=== PATIENT | male | born 1985 | race Caucasian/White ===

== ENCOUNTER 2017-09-19 18:07 | Emergency (ER) | payer MEDICAID, OTHER ==
[~2017-09-19] VITALS: Ht 182.9 cm; Wt 88.0 kg
--- NOTE | 2017-09-19 18:25 | PD ---
HPI Chief Complaint: Psychiatric Symptoms Time Seen by Provider: 18:22 Travel History International Travel<30 days: No Contact w/Intl Traveler<30days: No Traveled to known affect area: No History of Present Illness HPI Patient presents to the emergency department under Gallardo act. According to law enforcement report the patient stated "to his mother that his withdrawal from narcotics have made him make suicidal statements. He has stated that he was going to jump off a balcony to end his life. When the officer was speaking with the patient he was making a complete statements and not making sense. When the officer attempted to take the patient into protective custody he fought the officer and his lieutenant before being taken into custody." Patient denies making any statements of suicide. He said he just recently moved down here and he has been taking Suboxone and has not taken it for the last 6 days. He denies going through withdrawals. Denies homicidal ideations. Denies auditory or visual hallucinations. Reports doing cocaine and drinking alcohol to avoid going through withdrawals. Denies significant past medical history. Denies allergies. Denies current medical complaints to include chest pain, shortness breath, abdominal pain, vomiting, change in urine or stool. No known aggravating or relieving factors. No other modifying factors or associated signs and symptoms. [facility] Social History Alcohol Use: Yes Tobacco Use: No Substance Use: Yes (cocaine) Allergies-Medications (Allergen,Severity, Reaction): Coded Allergies: No Known Allergies (Unverified , 09/19/17) Review of Systems Except as stated in HPI: all other systems reviewed are Neg Physical Exam Narrative GENERAL: Well-nourished, well-developed male patient, in no acute distress; agitated SKIN: Warm and dry. HEAD: Atraumatic. Normocephalic. EYES: Pupils equal and round. ENT: Mucosa pink and moist. NECK: Supple. Trachea midline. CARDIOVASCULAR: Regular rate and rhythm. No murmur appreciated. RESPIRATORY: No accessory muscle use. Clear to auscultation. Breath sounds equal bilaterally. GASTROINTESTINAL: Abdomen soft, non-tender, nondistended. Hepatic and splenic margins not palpable. Bowel sounds are active 4 quadrants. MUSCULOSKELETAL: No obvious deformities. No clubbing. No cyanosis. No edema. NEUROLOGICAL: Awake and alert. No obvious cranial nerve deficits. Motor grossly within normal limits. Normal speech. Moves all extremities. 5/5 strength to all extremities. PSYCHIATRIC: No delusional thought processes. Patient is talking out loud in the room and does not appear to be having conversation with anyone in the room. Data Data Orders Orders Complete Blood Count With Diff (09/19/17 18:22) Comprehensive Metabolic Panel (09/19/17 18:22) Psych Screen (09/19/17 18:22) Drug Screen, Random Urine (09/19/17 18:22) Alcohol (Ethanol) (09/19/17 18:22) Salicylates (Aspirin) (09/19/17 18:22) Tylenol (Acetaminophen) (09/19/17 18:22) Haloperidol Inj (Haldol Inj) (09/19/17 18:45) Restraints Non-Violent WILMER.Q3H (09/19/17 18:36) MDM Medical Decision Making Medical Screen Exam Complete: Yes Emergency Medical Condition: Yes Medical Record Reviewed: Yes Differential Diagnosis Suicidal ideation, drug intoxication, medical clearance for psychiatric admission Narrative Course Patient presents under a Gallardo act. Physical examination and vital signs are essentially unremarkable. Patient has no medical complaints to report. Psych screen has been ordered. If the laboratory results are unremarkable, the patient will be medically cleared for psychiatric evaluation and disposition. 1835: Patient is not cooperating, he is agitated and acting aggressively. Dr. Oquendo evaluated the patient and recommended Haldol 5mg and the patient will be restrained for staff and patient safety. Orders entered. Diagnosis Primary Impression: Medical clearance for psychiatric admission Condition: Stable Cady Quiñonez [facility] Sep 19, 2017 18:25
[2017-09-19] MEDS ORDERED: HALOPERIDOL LACTATE 5 MG/ML AMP IM ONE (18:45)
[2017-09-19 19:01] VITALS: BP 108/61; PULSE 79; RESP 16; TEMP 98.2; O2SAT 98
[2017-09-19 19:07] LABS: AUTOMATED NEUTROPHIL # 9.2 TH/MM3 (1.8-7.7); BASOPHIL % 0.2 % (0.0-2.0); EOSINOPHIL % 0.2 % (0.0-4.0); HEMATOCRIT 47.7 % (39.0-51.0); HEMO FLAGS DIFF FINAL; LYMPH % 17.5 % (9.0-44.0); LYMPHOCYTE # 2.2 TH/MM3 (1.0-4.8); MEAN CELL VOLUME 105.3 FL (80.0-100.0); MEAN CORPUSCULAR HEMOGLOBIN 35.8 PG (27.0-34.0); MONO % 9.9 % (0.0-8.0); NEUT % 72.2 % (16.0-70.0); PLATELET COUNT 298 TH/MM3 (150-450); RED BLOOD COUNT 4.53 MIL/MM3 (4.50-5.90); RED CELL DISTRIBUTION WIDTH 14.6 % (11.6-17.2); WHITE BLOOD COUNT 12.7 TH/MM3 (4.0-11.0)
--- NOTE | 2017-09-19 19:17 | PD ---
Physical Exam Narrative I, Dr. Oquendo, have reviewed the advance practice practitioner's documentation and am in agreement, met with the patient face to face, made the diagnosis, and the medical decision making was done by me. *My assessment and Findings: Suicidal ideation vs. drug induced psychosis 32yo M was brought in as Gallardo Act for making suicidal statements. As per Gallardo Act, he stated withdrawal from narcotics has made him make suicidal statements. Pt is agitated and uncooperative here. Pt refused to answer my questions, refused to change to gown and was being a threat to others and himself. Pt given haldol IM and placed in restraints for safety. Labs reviewed , WBC 12.7. Mild hypokalemia at 3.1, replaced orally. AST elevated at 50 but has no abdominal pain. Alcohol 252. Utox positive for amphetamine, benzodiazepine and cocaine. Acetaminophen negative. Pt reevaluated at bedside after haldol and is more calm so restraints were removed. Said he is willing to wait for psych calmly and answers my questions. Denies any PMH or medical complaints. Admits to drug use. Pt is medically clear for psych evaluation. Will have a sitter to observe patient. Data Data Last Documented VS Vital Signs Date Time Temp Pulse Resp B/P (MAP) Pulse Ox O2 Delivery O2 Flow Rate FiO2 09/19/17 19:01 98.2 79 16 108/61 (77) 98 Orders Orders Complete Blood Count With Diff (09/19/17 18:22) Comprehensive Metabolic Panel (09/19/17 18:22) Psych Screen (09/19/17 18:22) Drug Screen, Random Urine (09/19/17 18:22) Alcohol (Ethanol) (09/19/17 18:22) Salicylates (Aspirin) (09/19/17 18:22) Tylenol (Acetaminophen) (09/19/17 18:22) Haloperidol Inj (Haldol Inj) (09/19/17 18:45) Restraints Non-Violent WILMER.Q3H (09/19/17 18:36) Labs Laboratory Tests Test 09/19/17 18:40 09/19/17 19:30 White Blood Count 12.7 TH/MM3 Red Blood Count 4.53 MIL/MM3 Hemoglobin 16.2 GM/DL Hematocrit 47.7 % Mean Corpuscular Volume 105.3 FL Mean Corpuscular Hemoglobin 35.8 PG Mean Corpuscular Hemoglobin Concent 34.0 % Red Cell Distribution Width 14.6 % Platelet Count 298 TH/MM3 Mean Platelet Volume 8.2 FL Neutrophils (%) (Auto) 72.2 % Lymphocytes (%) (Auto) 17.5 % Monocytes (%) (Auto) 9.9 % Eosinophils (%) (Auto) 0.2 % Basophils (%) (Auto) 0.2 % Neutrophils # (Auto) 9.2 TH/MM3 Lymphocytes # (Auto) 2.2 TH/MM3 Monocytes # (Auto) 1.3 TH/MM3 Eosinophils # (Auto) 0.0 TH/MM3 Basophils # (Auto) 0.0 TH/MM3 CBC Comment DIFF FINAL Differential Comment Blood Urea Nitrogen 13 MG/DL Creatinine 1.12 MG/DL Random Glucose 114 MG/DL Total Protein 8.5 GM/DL Albumin 3.8 GM/DL Calcium Level 8.4 MG/DL Alkaline Phosphatase 114 U/L Aspartate Amino Transf (AST/SGOT) 50 U/L Alanine Aminotransferase (ALT/SGPT) 58 U/L Total Bilirubin 0.2 MG/DL Sodium Level 141 MEQ/L Potassium Level 3.1 MEQ/L Chloride Level 107 MEQ/L Carbon Dioxide Level 21.0 MEQ/L Anion Gap 13 MEQ/L Estimat Glomerular Filtration Rate 75 ML/MIN Acetaminophen Level LESS THAN 2.0 MCG/ML Ethyl Alcohol Level 252 MG/DL Urine Opiates Screen NEG Urine Barbiturates Screen NEG Urine Amphetamines Screen POS Urine Benzodiazepines Screen POS Urine Cocaine Screen POS Urine Cannabinoids Screen NEG MDM Supervised Visit with RADHA: Yes Diagnosis Primary Impression: Medical clearance for psychiatric admission Scripts No Active Prescriptions or Reported Meds Condition: Stable Gloria Oquendo DO Sep 19, 2017 19:17
[2017-09-19 19:37] LABS: ANION GAP 13 MEQ/L (5-15); AST (GOT) 50 U/L (15-37); BLOOD UREA NITROGEN 13 MG/DL (7-18); CHLORIDE 107 MEQ/L (98-107); GLOMERULAR FILTRATION RATE 75 ML/MIN (>89); POTASSIUM 3.1 MEQ/L (3.5-5.1); SODIUM (NA) 141 MEQ/L (136-145)
[2017-09-19 19:40] LABS: ALKALINE PHOSPHATASE 114 U/L (45-117); ALT (GPT) 58 U/L (12-78); TOTAL BILIRUBIN ADULT 0.2 MG/DL (0.2-1.0)
[2017-09-19 19:42] LABS: ALCOHOL 252 MG/DL (0-5)
[2017-09-19 19:43] LABS: ACETAMINOPHEN LESS THAN 2.0 MCG/ML (10.0-30.0)
[2017-09-19] MEDS ORDERED: POTASSIUM CHLORIDE 20 MEQ CONTROLLED RELEASE TAB PO ONE (21:00)
[2017-09-19 21:45] VITALS: BP 126/68; PULSE 88; RESP 20; TEMP 98.2; O2SAT 96
[2017-09-20 00:03] VITALS: BP 134/83; PULSE 106; RESP 16; TEMP 98; O2SAT 97
[2017-09-20 02:00] VITALS: BP 120/73; PULSE 80; RESP 16; TEMP 99.1; O2SAT 98
== END 2017-09-20 03:51 ==
LOC: NEPD 18:07 → NEPJ 09-20 03:51
DX: Z02.89 Encounter for other administrative examinations (principal); R45.1 Restlessness and agitation; Z91.14 Patient's other noncompliance with medication regimen; Z72.89 Other problems related to lifestyle
CPT/HCPCS: 80053; 80307; 85025; 96372

== ENCOUNTER 2018-07-18 19:06 | Observation (INO) ==
[2018-07-18] MEDS ORDERED: Sod Chloride 0.9% Inj 1,000 ML IV.SIG ONE (19:33)
[2018-07-18] MEDS ORDERED: Famotidine PF Inj 20 MG/2 ML Vial IV.PUSH ONE (19:33)
--- NOTE | 2018-07-18 19:44 | ED ---
HPI General Chief complaint: Nausea/Vomiting/Diarrhea Stated complaint: seen earlier/fast HR and vomiting Time Seen by Provider: 07/18/18 19:14 Source: patient and family Mode of arrival: ambulatory Limitations: no limitations History of Present Illness HPI Narrative: The patient is a 33-year-old male who presents to the emergency department for nausea, vomiting, and esophageal discomfort after vomiting. The patient states he has a history of remote IV drug abuse and is currently on Suboxone, Valium, and medical marijuana. The patient has been cutting back the amount of Suboxone and Valium and increasing the amount of medical marijuana. The patient states he went on a 5-day fast 6 days ago, fasted for 5 days where he only drank water. The patient then tried to eat earlier today and developed subsequent nausea and vomiting. He also complains of mild epigastric pain secondary to the vomiting as well as a burning sensation in his throat after vomiting. The patient denies any illicit drug use or alcohol use. He denies any history of diabetes. The patient was seen in the emergency department earlier today, had an IV placed, however, tore his IV and went running out of the emergency department prior to completing treatment. The patient states he had to go home and get some Pepto-Bismol from his mother for his esophageal discomfort. MD complaint: Reports nausea and vomiting Onset (ago): hour(s) Description of Vomiting: watery Description of Diarrhea: none Associated Abdominal Pain: Yes Location of pain: Reports epigastric Radiation: does not radiate Severity: moderate Severity scale (1-10): 5 Quality: Reports sharp Pain Consistency: intermittent and now resolved Relieving factors: none Exacerbating factors: vomiting Context: Reports marijuana use Associated symptoms: Reports chest pain, nausea/vomiting, weakness and anxiety Related Data Home Medications Medication Instructions Recorded Confirmed buprenorphine-naloxone [Suboxone] film BUCCAL DAILY 07/18/18 diazepam [Valium] mg PO DAILY 07/18/18 Allergies Allergy/AdvReac Type Severity Reaction Status Date / Time No Known Allergies Allergy Verified 07/18/18 12:08 Review of Systems ROS: all other systems reviewed are negative [facility] Medical History Medical History Substance abuse (Acute) Surgical History Surgical History H/O splenectomy (Acute) Social History Social History Substance History: Past History Smoking Status: Current every day smoker Tobacco Type: Cigarettes How Often Do You Have a Drink Containing Alcohol: Never Recent Travel in [facility] within the Last 8 Weeks: No Recent Out of Country Travel within the Last 8 Weeks: No Substance Abuse Detail Heroin: 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 SKIN: Focused skin assessment warm/dry. HEAD: Atraumatic. Normocephalic. EYES: Pupils equal and round. No scleral icterus. No injection or drainage. ENT: No nasal bleeding or discharge. Mucous membranes pink and moist. NECK: Trachea midline. No JVD. CARDIOVASCULAR: Regular, tachycardic with a heart rate of 105. RESPIRATORY: No accessory muscle use. Clear to auscultation. Breath sounds equal bilaterally. GASTROINTESTINAL: Abdomen soft, non-tender, nondistended. No epigastric tenderness. No guarding rigidity. Well-healed midline scar. Large tattoo over the chest and abdomen noted. MUSCULOSKELETAL: No obvious deformities. No clubbing. No cyanosis. No edema. NEUROLOGICAL: Awake and alert. No obvious cranial nerve deficits. Motor grossly within normal limits. Normal speech. PSYCHIATRIC: Slightly anxious. Course Initial Documented Vital Signs Temperature 98.0 F 07/18/18 20:15 Pulse Rate 87 07/18/18 20:15 Respiratory Rate 18 07/18/18 20:15 Blood Pressure 127/71 07/18/18 20:15 Pulse Oximetry 100 07/18/18 20:15 Last Documented Vital Signs Temperature 98.0 F 07/18/18 20:15 Pulse Rate 87 07/18/18 20:15 Respiratory Rate 18 07/18/18 20:15 Blood Pressure 127/71 07/18/18 20:15 Pulse Oximetry 100 07/18/18 20:15 Medical Decision Making [facility] Narrative Medical decision making narrative: IV was established, labs are drawn and sent, and the patient was placed on cardiac telemetry monitoring and continuous pulse oximetry monitoring. The patient was administer 1 L of IV fluids. VBG, lactic acid, and CMP were sent to lab. The patient was administered Pepcid and Zofran. The patient's white count was elevated at 19.8, creatinine is 1.3, anion gap was 31, bicarb was low at a. VBG reveals mild acidosis with decreased PCO2 and decreased bicarb consistent with metabolic acidosis and mild respiratory compensation. The patient has been fasting for 5 days, this may be secondary to ketosis. I did check a salicylate level, was 6.1. He had 2 teaspoons of Pepto-Bismol earlier today but denies any chronic ingestion of aspirin. The patient will be a 23-hour observation for IV hydration, replacement of potassium, and to feed the patient to see if the ketosis versus an anion gap resolves. Therefore, the on-call medical service was paged for 23- hour observation. I discussed the patient with Dr. Watkins who agrees with 23- hour observation. Medical Screen Exam Complete: Yes Emergency Medical Condition: Yes Differential Diagnosis Differential Diagnosis: Differential diagnosis includes dehydration, hypokalemia , Boerhaave syndrome, gastritis, rhabdomyolysis, toxic syndrome, pancreatitis, opiate withdrawal, medication side effect. Lab Data Lab results reviewed: Yes I reviewed the patient's lab results. Result diagrams: 07/18/18 20:01 07/18/18 20:01 Lab Results 07/18/18 07/18/18 07/18/18 Range/Units 19:55 20:01 20:01 CBC w Diff Auto diff final WBC 19.8 H D (4.0-11.0) th/mm3 RBC 4.40 L (4.50-5.90) mil/mm3 Hgb 14.9 (13.0-17.0) gm/dL Hct 42.1 (39.0-51.0) % MCV 95.7 (80.0-100.0) fL MCH 33.8 (27.0-34.0) pg MCHC 35.3 (32.0-36.0) % RDW 12.5 (11.6-17.2) % Plt Count 376 (150-450) th/mm3 MPV 10.4 (7.0-11.0) fL Neut % (Auto) 91.6 H (16.0-70.0) % Lymph % (Auto) 3.8 L (9.0-44.0) % [place] % (Auto) 2.1 (0.0-8.0) % Eos % (Auto) 0.1 (0.0-4.0) % Baso % (Auto) 2.4 H (0.0-2.0) % Neut # (Auto) 18.0 H (1.8-7.7) th/mm3 Lymph # (Auto) 0.8 L (1.0-4.8) th/mm3 [place] # (Auto) 0.4 (0.0-0.9) th/mm3 Eos # (Auto) 0.0 (0.0-0.4) th/mm3 Baso # (Auto) 0.5 H (0.0-0.2) th/mm3 WBC Differential . Differential Comment . Puncture Site L hand Patient Temperature 98.6 VBG pH 7.25 L* (7.360-7.400) VBG pCO2 19 L* (44-48) mmHG VBG pO2 56 H (35-40) mmHG VBG HCO3 8 L* (22-26) mmol/L VBG O2 Saturation 85 H (70-76) % VBG O2 Content 17.3 H (9.0-17.0) Vol % VBG Base Excess -17.9 L (-2-2) mmol/L VBG Carboxyhemoglobin 1.2 (0-4) % VBG Methemoglobin 1.6 (0-2) % Hemoglobin 14.4 (12.0-16.0) G/DL Inspired O2 21 % Critical Value Yes Sodium 135 L (136-145) meq/L Potassium 3.2 L (3.5-5.1) meq/L Chloride 96 L (98-107) meq/L Carbon Dioxide 8.4 L (21.0-32.0) meq/L Anion Gap 31 H (5-15) meq/L BUN 8 (7-18) mg/dL Creatinine 1.30 (0.60-1.30) mg/dL Estimated GFR 63 L (>89) mL/min Random Glucose 110 H (74-106) mg/dL Lactic Acid (0.4-2.0) mmol/L Calcium 9.7 (8.5-10.1) mg/dL Magnesium 2.0 (1.5-2.5) mg/dL Total Bilirubin 0.5 (0.2-1.0) mg/dL AST 95 H (15-37) U/L ALT 127 H (12-78) U/L Alkaline Phosphatase 79 (45-117) U/L Total Creatine Kinase 117 (39-308) U/L CK-MB (CK-2) Less than 1.0 (0.5-3.6) ng/mL Total Protein 10.0 H D (6.4-8.2) g/dL Albumin 5.5 H (3.4-5.0) g/dL Lipase 61 L (73-393) U/L Salicylates (2.8-20.0) mg/dL 07/18/18 07/18/18 07/18/18 Range/Units 20:01 20:01 20:01 CBC w Diff WBC (4.0-11.0) th/mm3 RBC (4.50-5.90) mil/mm3 Hgb (13.0-17.0) gm/dL Hct (39.0-51.0) % MCV (80.0-100.0) fL MCH (27.0-34.0) pg MCHC (32.0-36.0) % RDW (11.6-17.2) % Plt Count (150-450) th/mm3 MPV (7.0-11.0) fL Neut % (Auto) (16.0-70.0) % Lymph % (Auto) (9.0-44.0) % [place] % (Auto) (0.0-8.0) % Eos % (Auto) (0.0-4.0) % Baso % (Auto) (0.0-2.0) % Neut # (Auto) (1.8-7.7) th/mm3 Lymph # (Auto) (1.0-4.8) th/mm3 [place] # (Auto) (0.0-0.9) th/mm3 Eos # (Auto) (0.0-0.4) th/mm3 Baso # (Auto) (0.0-0.2) th/mm3 WBC Differential Differential Comment Puncture Site Patient Temperature VBG pH (7.360-7.400) VBG pCO2 (44-48) mmHG VBG pO2 (35-40) mmHG VBG HCO3 (22-26) mmol/L VBG O2 Saturation (70-76) % VBG O2 Content (9.0-17.0) Vol % VBG Base Excess (-2-2) mmol/L VBG Carboxyhemoglobin (0-4) % VBG Methemoglobin (0-2) % Hemoglobin (12.0-16.0) G/DL Inspired O2 % Critical Value Sodium (136-145) meq/L Potassium (3.5-5.1) meq/L Chloride (98-107) meq/L Carbon Dioxide (21.0-32.0) meq/L Anion Gap (5-15) meq/L BUN (7-18) mg/dL Creatinine (0.60-1.30) mg/dL Estimated GFR (>89) mL/min Random Glucose (74-106) mg/dL Lactic Acid 1.9 (0.4-2.0) mmol/L Calcium (8.5-10.1) mg/dL Magnesium Cancelled (1.5-2.5) mg/dL Total Bilirubin (0.2-1.0) mg/dL AST (15-37) U/L ALT (12-78) U/L Alkaline Phosphatase (45-117) U/L Total Creatine Kinase (39-308) U/L CK-MB (CK-2) (0.5-3.6) ng/mL Total Protein (6.4-8.2) g/dL Albumin (3.4-5.0) g/dL Lipase (73-393) U/L Salicylates 6.1 (2.8-20.0) mg/dL Imaging Data Radiologist's impression: Chest X-Ray 07/18/18 19:44 CONCLUSION: No evidence of acute cardiopulmonary disease. ECG Data EKG Prior to Arrival: No Attestation: I personally reviewed and interpreted this ECG as follows: Interpretation: EKG reveals normal sinus rhythm with a rate of 94, nonspecific T wave changes. Discharge Plan Discharge Disposition Patient Disposition: 30 Still Patient Discharge Details Diagnosis: High anion gap metabolic acidosis, Acute hypokalemia, Nausea & vomiting Physicians Team ED Provider: Porfirio Greenfield Primary Care Provider: Primary Care Valerie Mora Rxs /Orders / Referrals /Forms Prescriptions: No Action diazepam [Valium] 2 mg Tablet PO DAILY RF: 0 buprenorphine-naloxone [Suboxone] 2-0.5 mg Film BUCCAL DAILY RF: 0 Discharge Interventions Interventions: Vital Signs Last Done: 07/18/18 20:15 Status ED Status: Pending Admission
[2018-07-18 20:08] LABS: VBG Base Excess -17.9 mmol/L (-2-2); VBG Blood Gas Oxygen Content 17.3 Vol % (9.0-17.0); VBG PCO2 19 mmHG (44-48); VBG PH 7.25 (7.360-7.400); VBG PO2 56 mmHG (35-40)
[2018-07-18 20:12] LABS: Baso # (Auto) 0.5 th/mm3 (0.0-0.2); Baso % (Auto) 2.4 % (0.0-2.0); Eos % (Auto) 0.1 % (0.0-4.0); Hematocrit 42.1 % (39.0-51.0); Hemoglobin 14.9 gm/dL (13.0-17.0); Lymph # (Auto) 0.8 th/mm3 (1.0-4.8); Lymph % (Auto) 3.8 % (9.0-44.0); Mean Corpuscular HGB Conc 35.3 % (32.0-36.0); Mean Corpuscular Hemoglobin 33.8 pg (27.0-34.0); Mean Corpuscular Volume 95.7 fL (80.0-100.0); Mean Platelet Volume 10.4 fL (7.0-11.0); Mono # (Auto) 0.4 th/mm3 (0.0-0.9); Mono % (Auto) 2.1 % (0.0-8.0); Neut % (Auto) 91.6 % (16.0-70.0); Platelet Count 376 th/mm3 (150-450); Red Cell Distribution Width 12.5 % (11.6-17.2); White Blood Count 19.8 th/mm3 (4.0-11.0)
[2018-07-18 20:18] LABS: Chloride 96 meq/L (98-107); Potassium 3.2 meq/L (3.5-5.1); Sodium 135 meq/L (136-145)
--- NOTE | 2018-07-18 20:19 | XR ---
EXAM DATE: 07/18/2018 7:44 PM EDT AGE/SEX: 33 years / Male INDICATIONS: Irregular heart rate, multiple episodes of vomiting starting today CLINICAL DATA: This is the patient's initial encounter. Patient reports that signs and symptoms have been present for 1 day and indicates a pain score of 5/10. MEDICAL/SURGICAL HISTORY: None. None. COMPARISON: No prior exams available for comparison. FINDINGS: A single AP view of the chest demonstrates the lungs to be symmetrically aerated without evidence of mass, infiltrate or effusion. The cardiomediastinal contours are unremarkable. Osseous structures a re intact. CONCLUSION: No evidence of acute cardiopulmonary disease. Electronically signed by: Wild Mccoy MD 07/18/2018 8:18 PM EDT
[2018-07-18 20:21] LABS: Albumin 5.5 g/dL (3.4-5.0); Anion Gap 31 meq/L (5-15); Calcium 9.7 mg/dL (8.5-10.1); Carbon Dioxide 8.4 meq/L (21.0-32.0); Lipase 61 U/L (73-393)
[2018-07-18 20:22] LABS: Blood Urea Nitrogen 8 mg/dL (7-18); Glucose,Random 110 mg/dL (74-106)
[2018-07-18 20:24] LABS: Alanine Aminotransferase 127 U/L (12-78); Aspartate Aminotransferase 95 U/L (15-37)
[2018-07-18 20:25] LABS: Glomerular Filtration Rate 63 mL/min (>89)
[2018-07-18 20:27] LABS: Alkaline Phosphatase 79 U/L (45-117); Creatine Kinase 117 U/L (39-308)
[2018-07-18] MEDS ORDERED: Sod Chloride 0.9% Inj 1,000 ML IV.CONT SCH (21:00)
[2018-07-18] MEDS ORDERED: Acetaminophen 325 MG Tablet PO PRN (21:08)
[2018-07-18] MEDS ORDERED: Bisacodyl 10 MG Supp RECTAL PRN (21:08)
[2018-07-18 21:35] LABS: Bilirubin,Urine Negative (Negative); Clarity,Urine Clear (Clear); Color,Urine Yellow (Yellw/Straw); Glucose,Urine (UA) Negative (Negative); Leukocyte Esterase,Urine Negative (Negative); Nitrite,Urine Negative (Negative); PH,Urine 5.5 (5.0-8.5); Specific Gravity,Urine Greater/Equal 1.030 (1.002-1.035); Urobilinogen,Urine 0.2 mg/dL (Less than 2)
[2018-07-18] MEDS: Potassium Chlor 10 mEq Premix 10 MEQ/100 ML PIGGYBACK IV.SIG SCH ×2 (21:40→23:40)
[2018-07-18 21:47] LABS: Cannabinoid Screen,Urine Pos (Neg)
[2018-07-18 21:49] LABS: RBC,Urine 0-3 /hpf (0-3); Squamous Epithelial Cell,Urine 0-5 /hpf (0-5); WBC,Urine 0-5 /hpf (0-5)
[2018-07-18 21:50] LABS: Amorphous Sediment,Urine Occ /hpf
[2018-07-18 21:55] LABS: Amphetamine Screen,Urine Neg (Neg)
[2018-07-18 21:57] LABS: Barbiturate Screen,Urine Neg (Neg)
[2018-07-18 22:00] LABS: Cocaine Screen,Urine Neg (Neg)
[2018-07-18 22:06] LABS: Opiate Screen,Urine Neg (Neg)
[2018-07-18] MEDS: Sod Chloride 0.9% Inj 1,000 ML IV.CONT SCH (22:20)
[2018-07-19] MEDS: Potassium Chlor 10 mEq Premix 10 MEQ/100 ML PIGGYBACK IV.SIG SCH (01:40)
[2018-07-19] MEDS: Sod Chloride 0.9% Inj 1,000 ML IV.CONT SCH (06:23)
[2018-07-19 08:21] LABS: Baso # (Auto) 0.3 th/mm3 (0.0-0.2); Eos # (Auto) 0.1 th/mm3 (0.0-0.4); Eos % (Auto) 0.6 % (0.0-4.0); Hematocrit 35.6 % (39.0-51.0); Hemoglobin 12.3 gm/dL (13.0-17.0); Lymph # (Auto) 1.9 th/mm3 (1.0-4.8); Lymph % (Auto) 13.5 % (9.0-44.0); Mean Corpuscular HGB Conc 34.4 % (32.0-36.0); Mean Platelet Volume 10.2 fL (7.0-11.0); Mono # (Auto) 1.3 th/mm3 (0.0-0.9); Mono % (Auto) 9.8 % (0.0-8.0); Neut # (Auto) 10.1 th/mm3 (1.8-7.7); Neut % (Auto) 74.1 % (16.0-70.0); Platelet Count 294 th/mm3 (150-450); Red Blood Count 3.71 mil/mm3 (4.50-5.90); Red Cell Distribution Width 12.8 % (11.6-17.2); White Blood Count 13.7 th/mm3 (4.0-11.0)
[2018-07-19 08:45] LABS: Alanine Aminotransferase 96 U/L (12-78); Albumin 4.2 g/dL (3.4-5.0); Alkaline Phosphatase 58 U/L (45-117); Anion Gap 15 meq/L (5-15); Aspartate Aminotransferase 52 U/L (15-37); Blood Urea Nitrogen 6 mg/dL (7-18); Calcium 8.4 mg/dL (8.5-10.1); Chloride 109 meq/L (98-107); Glomerular Filtration Rate 76 mL/min (>89); Glucose,Random 83 mg/dL (74-106); Potassium 3.6 meq/L (3.5-5.1); Sodium 139 meq/L (136-145); Total Protein 7.9 g/dL (6.4-8.2)
[2018-07-19] MEDS ORDERED: Senna/Docusate Sodium 8.6/50 MG Tablet PO SCH (09:00)
[2018-07-19] MEDS ORDERED: Famotidine PF Inj 20 MG/2 ML Vial IV.PUSH SCH (09:00)
[2018-07-19] MEDS ORDERED: Aluminum/Magnesium/Simethacone Susp 30 ML UDC PO PRN (11:21)
--- NOTE | 2018-07-19 11:26 | P.HP ---
History of Present Illness Primary Care Physician: No Primary Care Physician Chief Complaint: Nausea and vomiting. History of Present Illness: This is a 33-year-old male with a history of heroin abuse on Suboxone, Valium and medical marijuana. He has been doing well on tapering doses of previously mentioned medications by his pain management physician. He started fasting 5 days ago. States he goes fasting every now and then but this has been the longest. He woke up yesterday morning feeling fine and was walking when he developed his heart racing then later complain shortness of breath, nausea, vomiting and generalized weakness. He also reports of pleuritic bilateral chest wall pain from stretching. Patient was seen in the emergency department twice yesterday. He left the first time because he was impatient and cannot get anything to relieve his heartburn. He states he went to the nearest pharmacy and bought Pepto-Bismol. Patient was hydrated overnight and received Pepcid. States he is feeling much better without any symptoms and wants to eat. Chest x-ray independently reviewed by me with no acute cardiopulmonary disease. EKG independently reviewed without ST elevation. Sinus rhythm. All other systems reviewed negative Review of Systems All other systems reviewed negative except as stated in HPI PMFSH - History History Provided By: Patient - Medical History Medical History: Medical History (Last Updated 07/18/18 @ 12:10 by Hattie Duncan RN) Substance abuse - Surgical History Surgical History: Surgical History (Last Updated 07/18/18 @ 12:10 by Hattie Duncan RN) H/O splenectomy - Family History Family History: Family History (Last Updated 07/19/18 @ 11:33 by Lavon Hidalgo MD) Other No pertinent family history - Tobacco History Second Hand Smoke Exposure: No Tobacco Use In Past 30 Days: No Smoking Status: Former smoker Tobacco Type: Cigarettes - Alcohol History How Often Do You Have a Drink Containing Alcohol: Never - Substance Use History Substance History: Active Abuse - Substance Use Type Heroin Status: Sustained Remission Route Used: Intravenously Reason for Use: Get High Marijuana Status: Active Route Used: By Mouth Reason for Use: Calm Down Comment: he uses marijuana oil to get off his Suboxone med - Travel History Recent Travel in the [place] Within the Last 8 Weeks: No Recent Travel Out of the Country Within the Last 8 Weeks: No - Immunization History Tetanus Immunization: <5 Years Medications and Allergies Active Medications: Active Medications Acetaminophen (Tylenol) 650 mg PO Q4H PRN PRN Reason: Temp > 100.4 Al Hydrox/Mg Hydrox/Simethicone (Mag-Al Plus Susp Liq) 30 ml PO Q6H PRN PRN Reason: DYSPEPSIA OR HEARTBURN Al Hydroxide/Mg Hydroxide (Milk Of Magnesia Liq) 30 ml PO Q12H PRN PRN Reason: Mild Constipation Bisacodyl (Dulcolax Supp) 10 mg RECTAL DAILY PRN PRN Reason: SEVERE CONSITIPATION Calcium Carbonate (Tums Chew) 500 mg CHEW Q6H PRN PRN Reason: DYSPEPSIA OR HEARTBURN Famotidine (Pepcid) 20 mg PO BID [facility] Sodium Chloride (Ns Inj) 1,000 mls @ 100 mls/hr IV.CONT .Q10H [facility] Last Admin: 07/19/18 06:23 Dose: 100 mls/hr Lactulose (Lactulose Liq) 30 ml PO DAILY PRN PRN Reason: SEVERE CONSITIPATION Ondansetron HCl (Zofran Inj) 4 mg IV.PUSH Q6H PRN PRN Reason: NAUSEA OR VOMITING Senna/Docusate Sodium ([place]-Colace) 1 tab PO BID [facility] Last Admin: 07/19/18 08:06 Dose: Not Given Sennosides (Senokot) 17.2 mg PO Q12H PRN PRN Reason: Moderate Constipation Sodium Chloride (Ns Flush) 2 ml IV.FLUSH PRN PRN PRN Reason: FLUSH AFTER USING IV ACCESS Allergies Allergy/AdvReac Type Severity Reaction Status Date / Time No Known Allergies Allergy Verified 07/18/18 12:08 Home Medications Medication Instructions Recorded Confirmed Type buprenorphine-naloxone [Suboxone] 1 film SUBLINGUAL DAILY 07/18/18 07/18/18 History diazepam [Valium] 2 mg PO DAILY 07/18/18 07/18/18 History Exam Vital signs: Vital Signs 07/18/18 20:15 07/18/18 21:53 07/18/18 22:17 Temperature 98.0 F Pulse Rate 87 97 H 87 Respiratory Rate 18 Blood Pressure 127/71 122/74 Pulse Oximetry 100 98 07/18/18 22:34 07/19/18 04:00 07/19/18 08:00 Temperature 98.6 F 97.9 F 97.7 F Pulse Rate 96 H 81 68 Respiratory Rate 20 20 17 Blood Pressure 136/69 111/70 112/59 L Pulse Oximetry 98 98 98 Intake & Output 07/18/18 07/19/18 07/19/18 18:59 06:59 18:59 Intake Total 2540 / 2540 1000 / 1000 Balance 2540 / 2540 1000 / 1000 Weight 75.8 kg Intake: IV 2300 / 2300 1000 / 1000 NS Inj 1,000 ML @ 125 mls/hr IV 1000 / 1000 1000 / 1000 .CONT .Q8H RADHA Rx#:[id number] KCl 10 mEq Premix Inj 10 meq In 300 / 300 100 ml @ 100 mls/hr IV.SIG Q1H RADHA Rx#:[id number] NS Inj 1,000 ML @ Wide Open IV. 1000 / 1000 SIG BOLUS ONE Rx#:[id number] Oral 240 / 240 Other: # Voids 2 Date of Last Bowel Movement 07/17/18 Weight On Admission 75.3 kg Narrative: GENERAL: Well-developed, well-nourished in no distress SKIN: Warm and dry. HEAD: Atraumatic. Normocephalic. EYES: Pupils equal and round. No scleral icterus. No injection or drainage. ENT: No nasal bleeding or discharge. Mucous membranes pink and moist. NECK: Trachea midline. No JVD. CARDIOVASCULAR: Regular rate and rhythm. RESPIRATORY: No accessory muscle use. Clear to auscultation. Breath sounds equal bilaterally. GASTROINTESTINAL: Abdomen soft, non-tender, nondistended. MUSCULOSKELETAL: Extremities without clubbing, cyanosis, or edema. No obvious deformities. NEUROLOGICAL: Awake and alert. No obvious cranial nerve deficits. Motor grossly within normal limits. Five out of 5 muscle strength in the arms and legs. Normal speech. PSYCHIATRIC: Appropriate mood and affect; insight and judgment normal. Results - Labs CBC & Chem 7: 07/19/18 07:23 07/19/18 07:23 Labs: Laboratory Results - last 24 hr 07/18/18 07/18/18 07/18/18 19:55 20:01 20:01 CBC w Diff Auto diff final WBC 19.8 H D RBC 4.40 L Hgb 14.9 Hct 42.1 MCV 95.7 MCH 33.8 MCHC 35.3 RDW 12.5 Plt Count 376 MPV 10.4 Neut % (Auto) 91.6 H Lymph % (Auto) 3.8 L Perry % (Auto) 2.1 Eos % (Auto) 0.1 Baso % (Auto) 2.4 H Neut # (Auto) 18.0 H Lymph # (Auto) 0.8 L Perry # (Auto) 0.4 Eos # (Auto) 0.0 Baso # (Auto) 0.5 H WBC Differential . Diff Scan Differential Comment . Puncture Site L hand Patient Temperature 98.6 VBG pH 7.25 L* VBG pCO2 19 L* VBG pO2 56 H VBG HCO3 8 L* VBG O2 Saturation 85 H VBG O2 Content 17.3 H VBG Base Excess -17.9 L VBG Carboxyhemoglobin 1.2 VBG Methemoglobin 1.6 Hemoglobin 14.4 Inspired O2 21 Critical Value Yes Sodium 135 L Potassium 3.2 L Chloride 96 L Carbon Dioxide 8.4 L Anion Gap 31 H BUN 8 Creatinine 1.30 Estimated GFR 63 L Random Glucose 110 H Lactic Acid Calcium 9.7 Magnesium 2.0 Total Bilirubin 0.5 AST 95 H ALT 127 H Alkaline Phosphatase 79 Total Creatine Kinase 117 CK-MB (CK-2) Less than 1.0 Total Protein 10.0 H D Albumin 5.5 H Lipase 61 L Urine Color Urine Clarity Urine pH Ur Specific [place] Urine Protein Urine Glucose (UA) Urine Ketones Urine Occult Blood Urine Nitrate Urine Bilirubin Urine Urobilinogen Ur Leukocyte Esterase Urine RBC Urine WBC Ur Squamous Epith Cells Amorphous Sediment Hyaline Casts Micro UA Comment Ur Microscopic Review Urine Culture Comments Salicylates Urine Opiates Screen Ur Barbiturates Screen Ur Amphetamines Screen U Benzodiazepines Scrn Urine Cocaine Screen U Cannabinoids Screen 07/18/18 07/18/18 07/18/18 20:01 20:01 20:01 CBC w Diff WBC RBC Hgb Hct MCV MCH MCHC RDW Plt Count MPV Neut % (Auto) Lymph % (Auto) Perry % (Auto) Eos % (Auto) Baso % (Auto) Neut # (Auto) Lymph # (Auto) Perry # (Auto) Eos # (Auto) Baso # (Auto) WBC Differential Diff Scan Differential Comment Puncture Site Patient Temperature VBG pH VBG pCO2 VBG pO2 VBG HCO3 VBG O2 Saturation VBG O2 Content VBG Base Excess VBG Carboxyhemoglobin VBG Methemoglobin Hemoglobin Inspired O2 Critical Value Sodium Potassium Chloride Carbon Dioxide Anion Gap BUN Creatinine Estimated GFR Random Glucose Lactic Acid 1.9 Calcium Magnesium Cancelled Total Bilirubin AST ALT Alkaline Phosphatase Total Creatine Kinase CK-MB (CK-2) Total Protein Albumin Lipase Urine Color Urine Clarity Urine pH Ur Specific [place] Urine Protein Urine Glucose (UA) Urine Ketones Urine Occult Blood Urine Nitrate Urine Bilirubin Urine Urobilinogen Ur Leukocyte Esterase Urine RBC Urine WBC Ur Squamous Epith Cells Amorphous Sediment Hyaline Casts Micro UA Comment Ur Microscopic Review Urine Culture Comments Salicylates 6.1 Urine Opiates Screen Ur Barbiturates Screen Ur Amphetamines Screen U Benzodiazepines Scrn Urine Cocaine Screen U Cannabinoids Screen 07/18/18 07/18/18 07/19/18 21:29 21:29 07:23 CBC w Diff Slide review pending WBC 13.7 H RBC 3.71 L Hgb 12.3 L D Hct 35.6 L MCV 96.0 MCH 33.0 MCHC 34.4 RDW 12.8 Plt Count 294 MPV 10.2 Neut % (Auto) 74.1 H Lymph % (Auto) 13.5 Perry % (Auto) 9.8 H Eos % (Auto) 0.6 Baso % (Auto) 2.0 Neut # (Auto) 10.1 H Lymph # (Auto) 1.9 Perry # (Auto) 1.3 H Eos # (Auto) 0.1 Baso # (Auto) 0.3 H WBC Differential . Diff Scan Auto diff confirmed Differential Comment . Puncture Site Patient Temperature VBG pH VBG pCO2 VBG pO2 VBG HCO3 VBG O2 Saturation VBG O2 Content VBG Base Excess VBG Carboxyhemoglobin VBG Methemoglobin Hemoglobin Inspired O2 Critical Value Sodium Potassium Chloride Carbon Dioxide Anion Gap BUN Creatinine Estimated GFR Random Glucose Lactic Acid Calcium Magnesium Total Bilirubin AST ALT Alkaline Phosphatase Total Creatine Kinase CK-MB (CK-2) Total Protein Albumin Lipase Urine Color Yellow Urine Clarity Clear Urine pH 5.5 Ur Specific [place] Greater/equal 1.030 Urine Protein 30 H Urine Glucose (UA) Negative Urine Ketones 80 or greater H Urine Occult Blood Trace Urine Nitrate Negative Urine Bilirubin Negative Urine Urobilinogen 0.2 Ur Leukocyte Esterase Negative Urine RBC 0-3 Urine WBC 0-5 Ur Squamous Epith Cells 0-5 Amorphous Sediment Occ H Hyaline Casts 11-30 H Micro UA Comment Culture not ind Ur Microscopic Review Microscopic reviewed Urine Culture Comments Culture not ind Salicylates Urine Opiates Screen Neg Ur Barbiturates Screen Neg Ur Amphetamines Screen Neg U Benzodiazepines Scrn Pos H Urine Cocaine Screen Neg U Cannabinoids Screen Pos H 07/19/18 07:23 CBC w Diff WBC RBC Hgb Hct MCV MCH MCHC RDW Plt Count MPV Neut % (Auto) Lymph % (Auto) Perry % (Auto) Eos % (Auto) Baso % (Auto) Neut # (Auto) Lymph # (Auto) Perry # (Auto) Eos # (Auto) Baso # (Auto) WBC Differential Diff Scan Differential Comment Puncture Site Patient Temperature VBG pH VBG pCO2 VBG pO2 VBG HCO3 VBG O2 Saturation VBG O2 Content VBG Base Excess VBG Carboxyhemoglobin VBG Methemoglobin Hemoglobin Inspired O2 Critical Value Sodium 139 Potassium 3.6 Chloride 109 H D Carbon Dioxide 15.0 L Anion Gap 15 BUN 6 L Creatinine 1.10 Estimated GFR 76 L Random Glucose 83 Lactic Acid Calcium 8.4 L D Magnesium Total Bilirubin 0.6 AST 52 H ALT 96 H Alkaline Phosphatase 58 Total Creatine Kinase CK-MB (CK-2) Total Protein 7.9 D Albumin 4.2 D Lipase Urine Color Urine Clarity Urine pH Ur Specific [place] Urine Protein Urine Glucose (UA) Urine Ketones Urine Occult Blood Urine Nitrate Urine Bilirubin Urine Urobilinogen Ur Leukocyte Esterase Urine RBC Urine WBC Ur Squamous Epith Cells Amorphous Sediment Hyaline Casts Micro UA Comment Ur Microscopic Review Urine Culture Comments Salicylates Urine Opiates Screen Ur Barbiturates Screen Ur Amphetamines Screen U Benzodiazepines Scrn Urine Cocaine Screen U Cannabinoids Screen - Imaging Impressions Chest X-Ray 07/18/18 19:44 CONCLUSION: No evidence of acute cardiopulmonary disease. Caprini VTE Risk Assessment Caprini VTE Risk Assessment: No/Low Risk (score <= 1) Caprini Risk Assessment Model: Point Value = 1 Point Value = 2 Point Value = 3 Point Value = 5 Age 41-60 Minor surgery BMI > 25 kg/m2 Swollen legs Varicose veins or History of unexplained or recurrent spontaneous Oral contraceptives or hormone replacement Sepsis (< 1 month) Serious lung disease, including pneumonia (< 1 month) Abnormal pulmonary function Acute myocardial infarction Congestive heart failure (< 1 month) History of inflammatory bowel disease Medical patient at bed rest Age 61-74 Arthroscopic surgery Major open surgery (> 45 min) Laparoscopic surgery (> 45 min) Malignancy Confined to bed (> 72 hours) Immobilizing plaster cast Central venous access Age >= 75 History of VTE Family history of VTE Factor V Leiden Prothrombin [id number] Lupus anticoagulant Anticardiolipin antibodies Elevated serum homocysteine Heparin-induced thrombocytopenia Other congenital or acquired thrombophilia Stroke (< 1 month) Elective arthroplasty Hip, pelvis, or leg fracture Acute spinal cord injury (< 1 month) Prophylaxis Regimen: Total Risk Factor Score Risk Level Prophylaxis Regimen 0-1 Low Early ambulation 2 Moderate Order ONE of the following: *Sequential Compression Device (SCD) *Heparin 5000 units SQ BID 3-4 Higher Order ONE of the following medications: *Heparin 5000 units SQ TID *Enoxaparin/Lovenox 40 mg SQ daily (WT < 150 kg, CrCl > 30 mL/min) *Enoxaparin/Lovenox 30 mg SQ daily (WT < 150 kg, CrCl > 10-29 mL/min) *Enoxaparin/Lovenox 30 mg SQ BID (WT < 150 kg, CrCl > 30 mL/min) AND/OR *Sequential Compression Device (SCD) 5 or more Highest Order ONE of the following medications: *Heparin 5000 units SQ TID (Preferred with Epidurals) *Enoxaparin/Lovenox 40 mg SQ daily (WT < 150 kg, CrCl > 30 mL/min) *Enoxaparin/Lovenox 30 mg SQ daily (WT < 150 kg, CrCl > 10-29 mL/min) *Enoxaparin/Lovenox 30 mg SQ BID (WT < 150 kg, CrCl > 30 mL/min) AND *Sequential Compression Device (SCD) Assessment and Plan - Plan This is a 33-year-old male with a history of heroin abuse on Suboxone, Valium and medical marijuana. He has been doing well on tapering doses of previously mentioned medications by his pain management physician. He started fasting 5 days ago. States he goes fasting every now and then but this has been the longest. He woke up yesterday morning feeling fine and was walking when he developed his heart racing then later complain shortness of breath, nausea, vomiting and generalized weakness. He also reports of pleuritic bilateral chest wall pain from stretching. Patient was seen in the emergency department twice . He left the first time because he was impatient and cannot get anything to relieve his heartburn. He states he went to the nearest pharmacy and bought Pepto-Bismol. Patient was hydrated overnight and received Pepcid. States he is feeling much better without any symptoms and wants to eat. Chest pain secondary to anxiety attack. Chest x-ray, EKG and cardiac enzymes unremarkable. Patient counseled and educated on breathing techniques Anion gap acidosis secondary to ketosis from fasting. This is improving. Denies alcohol, methanol, ethylene glycol, Tylenol use. Salicylate level 6.1. Continue IV hydration. Repeat BMP at 2 PM today before discharge Hypokalemia. Improved with replacement leukocytosis. Improved. No evidence of infection Heartburn. Antireflux mechanisms discussed with the patient. Start Pepcid. Outpatient follow-up with GI Transaminitis. Patient has been workup in the past by his physician. Advised to follow-up. If persistent may need liver biopsy DVT prophylaxis with SCD and early ambulation Discharge Planning: Discharge patient to home Condition on discharge: Improved Regular Diet as tolerated Ad Dorys activity Rx written: Pepcid, OTC Maalox or tums Follow-up with primary care physician
--- NOTE | 2018-07-19 13:14 | ECG ---
Date Performed: 07/18/2018 Time Performed: 20:04:38 PTAGE: 33 years EKG: Sinus rhythm NONSPECIFIC T-WAVE ABNORMALITY BORDERLINE ECG PREVIOUS TRACING : 07/18/2018 12.06 DOCTOR: Shanda Tobar Interpretating Date/Time 07/19/2018 13:10:05
[2018-07-19 13:19] VITALS: BP 129/72; PULSE 83; RESP 16; TEMP 97; O2SAT 97
[2018-07-19 15:10] LABS: Potassium 3.4 meq/L (3.5-5.1)
[2018-07-19 15:12] LABS: Calcium 8.6 mg/dL (8.5-10.1)
[2018-07-19 15:13] LABS: Carbon Dioxide 16.2 meq/L (21.0-32.0)
[2018-07-19] MEDS ORDERED: Famotidine 20 MG Tablet PO SCH (21:00)
== END 2018-07-19 16:48 | disposition home or self-care (01) ==
LOC: PHEDA 19:06 → PHED 19:06 → PH3 22:06
PROVIDERS: ADMIT Internal Medicine; ATTEND Internal Medicine